=== PATIENT | female | born 1995 | race African-American/Black ===

== ENCOUNTER 2017-11-08 21:31 | Emergency (ER) | payer BC ==
[~2017-11-08] VITALS: Ht 177.8 cm; Wt 68.3 kg
[2017-11-08] MEDS ORDERED: DEXTROSE 50%, 50ML SYRINGE ONE (22:21)
[2017-11-08 22:30] LABS: BASOPHILS # (AUTO) 0.04 x10^3/uL (0-0.3); BASOPHILS % (AUTO) 1 % (0-1); EOSINOPHILS # (AUTO) 0.11 x10^3/uL (0-0.8); EOSINOPHILS % (AUTO) 2 % (1-7); LYMPHOCYTES # (AUTO) 1.82 x10^3/uL (1-6.1); LYMPHOCYTES % (AUTO) 36 % (22-44); MD NO; MEAN CORPUSCULAR HGB CONC 33.8 g/dL (32.4-35.8); MEAN PLATELET VOLUME 8.2 fL (7.4-10.4); MONOCYTES # (AUTO) 0.51 x10^3/uL (0-1.4); MONOCYTES % (AUTO) 10 % (2-9); NEUTROPHILS # (AUTO) 2.53 x10^3/uL (1.8-8.0); NEUTROPHILS % (AUTO) 50 % (42-75); PLATELET COUNT 284 x10^3/uL (130-400); RED BLOOD COUNT 4.76 x10^6/uL (3.82-5.3); RED CELL DISTRIBUTION WIDTH 13.1 % (9.6-15.2)
[2017-11-08 22:46] LABS: ALBUMIN 3.7 g/dL (3.4-5.0); ANION GAP 8 mmol/L (5-15); CHLORIDE 111 mmol/L (98-107); CREATININE 1.06 mg/dL (0.55-1.02)
[2017-11-08 23:36] VITALS: BP 129/91
[2017-11-09] MEDS ORDERED: SODIUM CHLORIDE 0.9% 1,000ML IVBOLUS ONE
== END 2017-11-08 23:58 | disposition home or self-care (01) ==
LOC: ED 23:52
DX: R20.2 Paresthesia of skin (principal); E86.0 Dehydration
CPT/HCPCS: 36415; 70450; 80048; 82040; 84703; 85025; 93005; 99285

== ENCOUNTER 2020-09-02 20:11 | Emergency (ER) | payer BC ==
[~2020-09-02] VITALS: Ht 177.8 cm; Wt 73.9 kg
[2020-09-02 20:12] VITALS: BP 138/85
--- NOTE | 2020-09-02 20:22 | NUR ---
ERP AT BEDSIDE
--- NOTE | 2020-09-02 20:50 | NUR ---
REPORT FROM JOSIE GRIDER
--- NOTE | 2020-09-02 20:59 | NUR ---
MEDS ORDERED FROM PHARMACY
[2020-09-02] MEDS ORDERED: MUPIROCIN OINT 2%, 22GM TP SCH (21:00)
[2020-09-02 21:05] LABS: HCT (SEDRATE) 40.4 % (34.6-47.8)
[2020-09-02 21:06] LABS: BASOPHILS % (AUTO) 1 % (0-1); EOSINOPHILS % (AUTO) 5 % (1-7); LYMPHOCYTES % (AUTO) 47 % (22-44); MEAN CORPUSCULAR HEMOGLOBIN 30.4 pg (27.0-34.8); MEAN CORPUSCULAR HGB CONC 35.7 g/dL (32.4-35.8); MEAN PLATELET VOLUME 7.8 fL (7.4-10.4); MONOCYTES % (AUTO) 9 % (2-9); NEUTROPHILS % (AUTO) 38 % (42-75); PLATELET COUNT 303 x10^3/uL (130-400); RED BLOOD COUNT 4.75 x10^6/uL (3.82-5.3); RED CELL DISTRIBUTION WIDTH 12.9 % (9.6-15.2)
[2020-09-02 21:11] LABS: MD NO
[2020-09-02 21:16] LABS: ALBUMIN 3.8 g/dL (3.4-5.0); ANION GAP 6 mmol/L (5-15); CALCIUM 9.1 mg/dL (8.5-10.1); CHLORIDE 109 mmol/L (98-107)
[2020-09-02 21:28] LABS: ALANINE AMINOTRANSFERASE 63 U/L (12-78); ALKALINE PHOSPHATASE 45 U/L (45-117); BILIRUBIN,TOTAL 0.3 mg/dL (0.2-1.0); C-REACTIVE PROTEIN, QUANT 0.06 mg/dL (0.02-0.49); CREATININE 0.78 mg/dL (0.55-1.02); TOTAL PROTEIN 8.1 g/dL (6.4-8.2)
== END 2020-09-02 21:50 | disposition home or self-care (01) ==
LOC: ED 20:19
DX: L30.9 Dermatitis, unspecified (principal)
CPT/HCPCS: 36415; 80053; 85025; 85651; 86140; 99283